=== PATIENT | female | born 1955 | race Caucasian/White ===

== ENCOUNTER 2018-05-13 07:56 | Outpatient (CLI) | payer OTHER ==
--- NOTE | 2018-05-13 13:21 | Diagnostic Imaging Report ---
Romulo meng MD [facility] [address] [facility] [address] [id number] Report Submission Date: May 13, 2018 8:50:55 AM [employer] Patient Study Name: ALISSA HENRY Date: May 13, 2018 8:05:19 AM [employer] Modality Type: US Gender: F Description: US TVG PELVIS : 55 Institution: [facility] Physician: Romulo meng MD Examination: Ultrasound pelvis History: us transvaginal - post menopausal bleeding Comparison exams: None available Findings: Sonographic evaluation of the pelvis demonstrates uterus measuring 6.6 x 3.8 x 4.9 cm. Myometrium without gross regularity. Endometrial complex measures 9.4 mm. Fluid/cysts within the endometrial canal. Right ovary measures 1.7 x 1.5 x 1.5 cm. Left ovary measures 1.4 x 1.3 x 1.6 cm. Normal flow on Doppler analysis. Impression: Prominent endometrial complex with fluid/possible polyp. Further evaluation recommended with possible biopsy. No evidence for pelvic mass or lesion. No ovarian abnormality or torsion. Electronically signed on May 13, 2018 8:50:55 AM [employer] by: Mikhail JETT
== END 2018-05-13 07:58 ==
LOC: RAD 07:56
PROVIDERS: ATTEND Obstetrics & Gynecology
DX: N95.0 Postmenopausal bleeding (principal); R93.89 Abnormal findings on diagnostic imaging of other specified body structures
CPT/HCPCS: 76830

== ENCOUNTER 2018-08-06 07:32 | Outpatient (CLI) | payer OTHER ==
[2018-08-06 08:17] LABS: eGFR (Non-African) > 60
== END 2018-08-06 07:34 ==
LOC: LAB 07:32
PROVIDERS: ATTEND Family Medicine
DX: Z00.00 Encounter for general adult medical examination without abnormal findings (principal)
CPT/HCPCS: 36415; 80053; 80061

== ENCOUNTER 2019-01-08 07:53 | Outpatient (CLI) | payer OTHER ==
[2019-01-08 08:40] LABS: HDL 43 mg/dL (>40); eGFR (Non-African) > 60
== END 2019-01-08 07:55 ==
LOC: LAB 07:53
PROVIDERS: ATTEND Family Medicine
DX: E78.2 Mixed hyperlipidemia (principal)
CPT/HCPCS: 36415; 80053; 80061